=== PATIENT | female | born 1975 | race African-American/Black ===

== ENCOUNTER 2017-06-06 08:33 | Emergency (ER) | payer OTHER, MEDICAID ==
[2017-06-06 08:39] VITALS: BP 162/95; BMI 39.3
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
== END 2017-06-06 10:39 | disposition home or self-care (01) ==
LOC: ER 08:54
DX: S83.91XA Sprain of unspecified site of right knee, initial encounter (principal); M25.561 Pain in right knee; Y33.XXXA Other specified events, undetermined intent, initial encounter; Y92.69 Other specified industrial and construction area as the place of occurrence of the external cause
CPT/HCPCS: 29530; 73564; 99282; 99283

== ENCOUNTER 2017-07-16 17:22 | Emergency (ER) | payer OTHER, MEDICAID ==
[2017-07-16 17:31] VITALS: BP 205/125; BMI 32.1
--- NOTE | 2017-07-16 18:09 | DR.GENAD ---
HPI - PCP Primary Care Physician: VU - HPI Comment HPI Comment: SYMTOM WORSE TODAY. - Complaint/Symptoms Chief Complaint Doctors Comments: PAIN AND SWELLING RIGHT HAND BASE OF THUMB FOR 1 WEEK. Chief Complaint:: PATIENT STATED THAT SHE HURT HER RIGHT HAND. SHE STATED THAT IT IS SWOLLEN AND PAINFUL. SHE CAN NOT REMEMBER WHAT SHE DONE TO HURT IT. THIS HAS BEEN GOING ON 1 WEEK. - Nurses notes reviewed Nurses Notes Review: Yes - Source History Provided: Patient - Mode of Arrival Mode of Arrival: Ambulatory - Timing Onset of Chief Complaint: 07/09/17 Came on: Suddenly - Duration Duration: Constant Duration: Days - Severity Severity: Moderate PMH - PMH Past Medical History: Yes Past Medical History: Hypertension Past Surgical History: Yes - Family History History of Family Medical Conditions: Yes Family Medical History: Diabetes Mellitus, Cancer, Hypertension - Social History Does patient currently use any type of tobacco product: No Have you used tobacco products in the last 12 months: No Type of Tobacco Use: None Does any household member use tobacco: No Alcohol Use: None Do you use any recreational Drugs:: No Lives With: Family Lives Where: Home - infectious screening In the last 2 months have you had wt loss of >10#?: NO Have you had fever, night sweats or hemotysis?: No Have you traveled outside the country in the last 6 months?: No Isolation: Standard ROS - Review of Systems Constitutional: No Symptoms Reported Eyes: No Symptoms Reported ENTM: No Symptoms Reported Respiratoy: No Symptoms Reported Cardiovascular: No Symptoms Reported Gastrointestinal/Abdominal: No Symptoms Reported Genitourinary: No Symptoms Reported Neurological: No Symptoms Reported Musculoskeletal: Right, Hand Hematologic/Lymphatic: No Symptoms Reported Endocrine: No Symptoms Reported All Other Systems: Reviewed and Negative PE - Vital Signs Vitals: Temperature 98.5 F Pulse Rate 87 Respiratory Rate 20 Blood Pressure 205/125 O2 Sat by Pulse Oximetry 97 - General Limitations: No Limitations General Appearance: Alert - Head Head Exam: Normal Inspection - Eyes Eye exam: Normal Appearance - ENT ENT Exam: Normal External Ear Exam External Ear Exam: Normal External Inspection - Neck Neck Exam: Trachea Midline - Chest Chest Inspection: Symmetric Chest Wall Rise - Respiratory Respiratory Exam: Normal Lung Sounds Bilat Respiratory Exam: Bilateral Clear to Auscultation - Cardiovascular Cardiovascular Exam: Regular Rate, Normal Rhythm, Normal Heart Sounds - Abdominal Exam Abdominal Exam: Normal Inspection - Extremities Extremities Exam: Tenderness (SWELLING AND TENDERNESS BASE OF THUMB AND THENER EMINENCE.), Joint Swelling (FIRST RT MP JOINT.) - Back Back Exam: Normal Inspection - Neurologic Neurological Exam: Alert, Oriented X3 - Psychiatric Psychiatric Exam: Normal Affect, Normal Mood - Skin Skin Exam: Erythema MDM - Differential Diagnosis Differential Diagnosis: CONTUSION, SPRAIN, FRACTURE RT HAND. Course - Treatment Treatment: SEE ORDERS. - Education/Counseling Education/Counseling: Patient, Education Educated On: Diagnosis, Needs for Follow Up ROR - XRAY XRAY Interpreted by: Radiologist XRAY Findings: REPORT DISCUSS WITH PATIENT. - Diagnosis Discharge Problem: Sprain of right hand Qualifiers: Encounter type: initial encounter Qualified Code(s): S63.91XA - Sprain of unspecified part of right wrist and hand, initial encounter - Discharge Plan Disposition: 01 HOME, SELF-CARE Condition: Stable Prescriptions: Ibuprofen [MOTRIN TAB 800 MG *] 800 mg PO BID PRN #20 tab PRN Reason: Pain/Inflammation - Follow ups/Referrals Follow ups/Referrals: MDMisc [Primary Care Provider] - 3 days - Instructions Instructions: Intermetacarpal Sprain Additional Instructions: RETURN TO ED IF WORSE.
[2017-07-16] MEDS ORDERED: MOTRIN TAB 800 MG PO ONE ×2 (20:10→20:11)
--- NOTE | 2017-07-16 20:14 | RAD ---
EXAM: Right hand x-ray INDICATION: Pain COMPARISION: No priors for comparison TECHNIQUE: AP, lateral, and oblique, three views FINDINGS: No acute fracture or dislocation. The joint spaces are preserved. The soft tissues are normal. No rad iopaque foreign body. IMPRESSION: Normal right hand x-ray exam Reported By:
== END 2017-07-16 20:16 | disposition home or self-care (01) ==
LOC: ER 17:40
DX: S69.91XA Unspecified injury of right wrist, hand and finger(s), initial encounter (principal); S63.91XA Sprain of unspecified part of right wrist and hand, initial encounter; Y33.XXXA Other specified events, undetermined intent, initial encounter; Y92.9 Unspecified place or not applicable
CPT/HCPCS: 73130; 99282

== ENCOUNTER → 2017-08-24 | Outpatient (CLI) | payer OTHER, MEDICAID ==
--- NOTE | 2017-08-25 08:18 | RAD ---
Examination: X-rays of the right hand. Clinical history: Right thumb pain. Technique: Three views of the right hand were obtained. Comparison: 07/16/2017. Findings: No acute fracture, dislocation, or destructive bony lesion is noted. No arthropathy is noted. No soft tissue abnormality is noted. Impression: 1. Negative x-rays of the right hand. Reported By:
== END ==
LOC: RAD 13:04
PROVIDERS: ATTEND Nurse Practitioner Family
DX: M25.50 Pain in unspecified joint (principal)
CPT/HCPCS: 73130